=== PATIENT | male | born 1975 | race Native Hawaiian/Other Pacific Islander ===

== ENCOUNTER 2019-11-05 15:57 | Emergency (ER) | payer SELFPAY ==
[2019-11-05 18:05] LABS: BASOPHILS # (AUTO) 0.1 10^3/uL (0.0-0.1); BASOPHILS % (AUTO) 0.3 %; EOSINOPHILS % (AUTO) 0.1 %; HGB - HEMOGLOBIN 14.6 g/dL (14.0-18.0); LYMPHOCYTES # (AUTO) 1.4 10^3/uL (1.5-3.5); LYMPHOCYTES % (AUTO) 9.4 %; MEAN CORPUSCULAR HEMOGLOBIN 30.9 pg (27.0-31.0); MEAN CORPUSCULAR HGB CONC 33.9 g/dL (32.0-36.0); MEAN CORPUSCULAR VOLUME 91.1 fL (80.0-94.0); MEAN PLATELET VOLUME 9.9 fL (7.4-11.4); MONOCYTES # (AUTO) 0.6 10^3/uL (0.0-1.0); MONOCYTES % (AUTO) 3.8 %; NEUTROPHILS # (AUTO) 12.8 10^3/uL (1.5-6.6); NEUTROPHILS % (AUTO) 85.9 %; PLT - PLATELET COUNT 205 10^3/uL (130-450); RED BLOOD COUNT 4.73 10^6/uL (4.70-6.10); WHITE BLOOD COUNT 14.9 x10^3/uL (4.8-10.8)
[2019-11-05 18:11] LABS: INR 1.2 (0.8-1.2); PT - PROTHROMBIN TIME 13.2 secs (9.9-12.6)
[2019-11-05 18:14] LABS: CALCIUM 9.8 mg/dL (8.5-10.3); CREATININE 0.9 mg/dL (0.6-1.2)
[2019-11-05 18:19] LABS: PARTIAL THROMBOPLASTIN TIME 30.9 secs (24.9-33.3)
--- NOTE | 2019-11-05 19:34 | ED Physician Documentation ---
History of Present Illness - Stated complaint Stated Complaint: M - Chief complaint Chief Complaint: General - History obtained from History obtained from: Patient - History of Present Illness Timing: How many days ago (3) Pain level max: 0 Pain level now: 0 - Additonal information Additional information: 44-year-old male with a external hemorrhoid that is been bleeding for the past 3 days. Increased bleeding today. Nothing makes it better or worse. No pain. Review of Systems Constitutional: denies: Fever, Chills GI: denies: Vomiting, Diarrhea Skin: denies: Rash Musculoskeletal: denies: Neck pain, Back pain PD PAST MEDICAL HISTORY - Past Medical History Past Medical History: No - Past Surgical History Past Surgical History: No - Present Medications Home Medications: Ambulatory Orders Medication Instructions Recorded Confirmed Acetaminophen [Tylenol] 325 mg PO ONCE 09/24/14 09/24/14 Azithromycin [Zithromax] 250 mg PO DAILY #6 tablet 09/24/14 Methylprednisolone [Medrol] 4 mg PO DAILY #1 tab.ds.pk 11/05/19 - Allergies Allergies/Adverse Reactions: Allergies Allergy/AdvReac Type Severity Reaction Status Date / Time No Known Drug Allergies Allergy Verified 11/05/19 16:27 - Living Situation Living Arrangement: reports: At home - Social History Does the pt smoke?: No Smoking Status: Never smoker Does the pt drink ETOH?: No Does the pt have substance abuse?: No - Immunizations Immunizations are current?: Yes PD ED PE NORMAL - Vitals Vital signs reviewed: Yes - General General: Alert and oriented X 3, No acute distress - HEENT HEENT: Moist mucous membranes - Neck Neck: Supple, no meningeal sign - Cardiac Cardiac: RRR - Respiratory Respiratory: No respiratory distress, Clear bilaterally - Rectal Rectal: Other (Mildly inflamed hemorrhoid with mild active bleeding.) - Derm Derm: Warm and dry - Neuro Neuro: Alert and oriented X 3 Results - Vitals Vitals: Vital Signs - 24 hr 11/05/19 11/05/19 11/05/19 16:24 17:20 19:47 Temperature 36.9 C 37.3 C 37.2 C Heart Rate 76 70 68 Respiratory 16 18 18 Rate Blood Pressure 127/70 137/69 H 131/80 H O2 Saturation 96 95 98 Oxygen O2 Source Room air - Labs Labs: Laboratory Tests 11/05/19 11/05/19 11/05/19 17:59 17:59 17:59 WBC 14.9 H RBC 4.73 Hgb 14.6 Hct 43.1 MCV 91.1 MCH 30.9 MCHC 33.9 RDW 12.0 Plt Count 205 MPV 9.9 Neut # (Auto) 12.8 H Lymph # (Auto) 1.4 L [place] # (Auto) 0.6 Eos # (Auto) 0.0 Baso # (Auto) 0.1 Absolute Nucleated RBC 0.00 Nucleated RBC % 0.0 PT 13.2 H INR 1.2 APTT 30.9 Sodium 138 Potassium 4.2 Chloride 101 Carbon Dioxide 26 Anion Gap 11.0 BUN 22 H Creatinine 0.9 Estimated GFR (MDRD) 93 Glucose 100 Calcium 9.8 PD MEDICAL DECISION MAKING - ED course Complexity details: reviewed results, re-evaluated patient, considered differential, d/w patient, d/w operations consultant ED course: Patient with a mildly bleeding hemorrhoid. Discussed the case with general surgery, Dr. Gomez who recommends methylprednisolone. She recommends follow-up in the office as needed. Patient will also utilize sitz bath at home. Patient counseled regarding signs and symptoms for which I believe and urgent re- evaluation would be necessary. Patient with good understanding of and agreement to plan and is comfortable going home at this time This document was made in part using voice recognition software. While efforts are made to proofread this document, sound alike and grammatical errors may occur. Departure - Departure Disposition: 01 Home, Self Care Clinical Impression: Bleeding external hemorrhoids Condition: Good Instructions: ED Hemorrhoids Follow-Up: your,doctor in 1 week [Other] Prescriptions: Methylprednisolone [Medrol] 4 mg PO DAILY #1 tab.ds.pk Comments: Use the steroids as prescribed. They will help decrease the inflammation which will lead to clotting and the bleeding will stop. Return if you worsen. You can also utilize sitz bath at home. Discharge Date/Time: 11/05/19 19:51
[2019-11-05 19:48] VITALS: BP 131/80
== END 2019-11-05 19:51 | disposition home or self-care (01) ==
LOC: ED 15:57
DX: K64.8 Other hemorrhoids (principal)
CPT/HCPCS: 36415; 80048; 85025; 85610; 85730; 99283; 99284

== ENCOUNTER 2022-07-21 12:11 | Emergency (ER) | payer SELFPAY ==
[2022-07-21 12:25] VITALS: BP 147/91
--- NOTE | 2022-07-21 12:43 | ED Physician Documentation ---
PD HPI UPPER EXT INJURY - Stated complaint Stated Complaint: R HAND LAC - Chief complaint Chief Complaint: Laceration - History obtained from History obtained from: Patient (Right-handed gentleman who was cut accidentally by his own knife on the right hand just prior to arrival. He is up-to-date on tetanus.) PD PAST MEDICAL HISTORY - Past Surgical History Past Surgical History: No - Present Medications Home Medications: Ambulatory Orders Medication Instructions Recorded Confirmed Acetaminophen [Tylenol] 325 mg PO ONCE 09/24/14 09/24/14 Azithromycin [Zithromax] 250 mg PO DAILY #6 tablet 09/24/14 methylPREDNISolone [Medrol] 4 mg PO DAILY #1 tab.ds.pk 11/05/19 - Allergies Allergies/Adverse Reactions: Allergies Allergy/AdvReac Type Severity Reaction Status Date / Time No Known Drug Allergies Allergy Verified 07/21/22 12:25 - Social History Does the pt smoke?: No Smoking Status: Never smoker Does the pt drink ETOH?: No Does the pt have substance abuse?: No - Immunizations Immunizations are current?: Yes PD ED PE NORMAL - Vitals Vital signs reviewed: Yes - Extremities Extremities: Other (There is a 3 cm laceration along the ulnar side of the hand at the level of the fifth MCP without distal neurovascular compromise in the pinky. 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.) - Neuro Neuro: Alert and oriented X 3, Normal speech Results - Vitals Vitals: Vital Signs - 24 hr 07/21/22 12:22 Temperature 37.4 C Heart Rate 89 Respiratory 16 Rate Blood Pressure 147/91 H O2 Saturation 98 Oxygen O2 Source Room air Procedures - Laceration (location) Right hand Length in cm: 3 Wound type: Linear, Into subcut fat Tendon involvement: Tendon intact Anesthesia: Lidocaine 1% Wound preparation: Irrigated copiously NS Skin layer closure: Nylon, Interrupted, Size #-0 - enter number (4-0), Sutures - enter # (6) Other: Tetanus UTD Departure - Departure Disposition: 01 Home, Self Care Clinical Impression: Laceration of right hand Qualifiers: Encounter type: initial encounter Foreign body presence: without foreign body Qualified Code(s): S61.411A - Laceration without foreign body of right hand, initial encounter Condition: Good Record reviewed to determine appropriate education?: Yes Instructions: ED Laceration Hand Comments: Come back for any signs of infection which would include: Redness, swelling, drainage, increased pain, or fevers. You can wash it soap and water. Keep it covered and moist with bacitracin ointment which is available over the counter; avoid neosporin. Follow-up with your physician in 14 days for suture removal.
== END 2022-07-21 12:48 | disposition home or self-care (01) ==
LOC: ED 12:11
DX: S61.411A Laceration without foreign body of right hand, initial encounter (principal); W26.0XXA Contact with knife, initial encounter
CPT/HCPCS: 12002; 99281

== ENCOUNTER 2022-09-17 17:47 | Emergency (ER) | payer SELFPAY ==
[2022-09-17 17:58] VITALS: BP 138/86
--- NOTE | 2022-09-17 18:08 | ED Physician Documentation ---
PD HPI HEENT - Stated complaint Stated Complaint: Nose Bleeding - Chief complaint Chief Complaint: Heent - History obtained from History obtained from: Patient, Family - Additional information Additional information: 47-year-old male, presents after dental work yesterday, he had a left upper molar pulled. Since then he has felt a foreign body sensation in the throat and is concerned there may be something in there. He also has had some mild oozing from the left Extraction site. He also had a brief episode of nosebleeding earlier today that stopped on its own. No facial trauma, no facial swelling or erythema, no sinus pain or tenderness, no fevers or chills. Swallowing Well, and has eaten without difficulty. PD PAST MEDICAL HISTORY - Past Medical History Past Medical History: No - Past Surgical History Past Surgical History: No - Present Medications Home Medications: Ambulatory Orders Medication Instructions Recorded Confirmed Acetaminophen [Tylenol] 325 mg PO ONCE 09/24/14 09/24/14 Azithromycin [Zithromax] 250 mg PO DAILY #6 tablet 09/24/14 methylPREDNISolone [Medrol] 4 mg PO DAILY #1 tab.ds.pk 11/05/19 - Allergies Allergies/Adverse Reactions: Allergies Allergy/AdvReac Type Severity Reaction Status Date / Time No Known Drug Allergies Allergy Verified 07/21/22 12:25 - Social History Does the pt smoke?: No Smoking Status: Never smoker Does the pt drink ETOH?: No Does the pt have substance abuse?: No - Immunizations Immunizations are current?: Yes PD ED PE NORMAL - Vitals Vital signs reviewed: Yes - General General: Alert and oriented X 3, No acute distress, Well developed/nourished - HEENT HEENT: Atraumatic, Ears normal, Moist mucous membranes, Pharynx benign, Other (Left upper molar extraction site with slight oozing, no swelling, no facial swelling or erythema.) - Neck Neck: Supple, no meningeal sign, No adenopathy, Thyroid normal, No JVD - Cardiac Cardiac: RRR, No murmur - Respiratory Respiratory: No respiratory distress, Clear bilaterally Results - Vitals Vitals: Vital Signs - 24 hr 09/17/22 17:51 Temperature 37.6 C Heart Rate 69 Respiratory 20 Rate Blood Pressure 138/86 H O2 Saturation 96 Oxygen O2 Source Room air PD Medical Decision Making - ED course Complexity details: reviewed results, re-evaluated patient, considered differential, d/w patient ED course: Patient presented with foreign body sensation after having dental work yesterday. He was concerned that there may have been something in his throat. He is well appearing and his physical exam is reassuring. I did obtain a soft tissue x-ray which is negative, I do not see indication for a CT as patient is swelling well, and he had no sutures or other procedures in his mouth other than the extraction. The extraction site is healing, there is a small amount of oozing blood from it but no sign of infection, no facial swelling or sinus infection. I discussed anticipated course of healing for this extraction and supportive measures. I reviewed return precautions if new or worsening symptoms. Departure - Departure Disposition: 01 Home, Self Care Clinical Impression: Epistaxis, Foreign body sensation in throat Condition: Good Instructions: Nosebleed Comments: I do not see any foreign body on your x-ray. Your sensation may be related to your dental work recently and some ongoing drainage from your dental extraction. Try to stay well-hydrated, continue the instructions you were provided by the dentist and return if new or worsening symptoms.
--- OUTSIDE RECORDS SUMMARY | 2022-09-17 18:20 | EXTERNAL MEDICAL SUMMARY RPT | Continuity of Care Document ---
Author Name Unknown Address [address] [place] [address] Phone Organization [facility] Address [address] [place] [address] Phone Care Team Providers Care Retirement Consultant Name Role Phone Unavailable Unavailable Unavailable Blanca Bates, Amish Unavailable Unavailable Medications date description facility 2022-08-05 00:00 No Known Medications [facility] Problems date description facility 2022-08-05 00:00 Removal of suture [facility] 2022-08-05 00:00 Encounter for removal of suture s [facility] Procedures date description facility 2022-08-05 00:00 Visit Code Hold [facility] Social History date description facility 2022-08-05 00:00 Never smoker [facility] Vital Signs date measurement value units 2022-08-05 00:00 BMI 27.71 kg/m2 2022-08-05 00:00 BP_diastolic 87 mmHg 2022-08-05 00:00 BP_systolic 146 mmHg 2022-08-05 00:00 heart_rate 74 /min 2022-08-05 00:00 height_metric 175.26 cm 2022-08-05 00:00 height_standard 69 in 2022-08-05 00:00 respiration_rate 14 /min 2022-08-05 00:00 temperature_metric 36.44 C 2022-08-05 00:00 temperature_standard 97.6 F 2022-08-05 00:00 weight_metric 84.82 kg 2022-08-05 00:00 weight_standard 187 lb
--- NOTE | 2022-09-17 18:43 | XRAY Report ---
PROCEDURE: Neck Soft Tissue INDICATIONS: foreign body sensation, post dental work TECHNIQUE: 2 views of the neck were acquired. COMPARISON: None FINDINGS: Airway: The airway appears patent. Soft tissues: Prevertebral soft tissues are normal in thickness. The epiglottis and aryepiglottic f olds appear normal. No soft tissue gas. No radiopaque foreign bodies are seen. The visualized lung demonstrates a normal appearance. Bones: No suspicious bony lesions. Visualized cervical spine is normally aligned. IMPRESSION: No radiopaque foreign bodies are seen. No focal soft tissue abnormality is seen. If it would be helpful for clinical management decision making, please consider a dedicated soft tiss ue neck CT with IV contrast for further evaluation. Reviewed by: Juan Carlos Lugo MD on 09/17/2022 5:42 PM ROBERT Approved by: Juan Carlos Lugo MD on 09/17/2022 5:42 PM ROBERT Station ID: [id number]
== END 2022-09-17 18:59 | disposition home or self-care (01) ==
LOC: ED 17:47
DX: R04.0 Epistaxis (principal); R09.89 Other specified symptoms and signs involving the circulatory and respiratory systems
CPT/HCPCS: 99282; 99283